=== PATIENT | male | born 1985 | race American Indian/Alaskan Native ===

== ENCOUNTER 2019-04-17 14:29 | Emergency (ER) | payer SELFPAY ==
[2019-04-17 14:39] VITALS: BP 131/78
--- NOTE | 2019-04-17 14:52 | Emergency Department Report ---
Blank Doc - Documentation Documentation: 33-year-old male that presents with abdominal pain, fever, n/v. This initial assessment/diagnostic orders/clinical plan/treatment(s) is/are subject to change based on patient's health status, clinical progression and re- assessment by fellow clinical providers in the ED. Further treatment and workup at subsequent clinical providers discretion. Patient/guardians urged not to elope from the ED as their condition may be serious if not clinically assessed and managed. Initial orders include: 1- Patient sent to [facility] for further evaluation and treatment 2- labs 3- UA
[2019-04-17 15:11] LABS: Basophils % (Auto) 0.2 % (0.0-1.8); Eosinophils % (Auto) 0.3 % (0.0-4.3); Hematocrit 45.2 % (35.5-45.6); Hemoglobin 15.8 gm/dl (11.8-15.2); Lymphocytes # (Auto) 1.4 K/mm3 (1.2-5.4); Lymphocytes % (Auto) 21.3 % (13.4-35.0); Mean Corpuscular HGB Conc 35 % (32-34); Mean Corpuscular Volume 89 fl (84-94); Monocytes # (Auto) 0.8 K/mm3 (0.0-0.8); Monocytes % (Auto) 11.7 % (0.0-7.3); Platelet Count 156 K/mm3 (140-440); Red Blood Count 5.05 M/mm3 (3.65-5.03); Red Cell Distribution Width 14.1 % (13.2-15.2)
[2019-04-17 15:30] LABS: Alanine Aminotransferase 17 units/L (7-56); BUN/Creatinine Ratio 5; Blood Urea Nitrogen 6 mg/dL (9-20); Hemolysis Index 15
[2019-04-17 17:16] LABS: Bilirubin,Urine NEG (Negative); Blood,Urine NEG (Negative); Color,Urine Yellow (Yellow); Mucus,Urine FEW /HPF; Urobilinogen,Urine < 2.0 mg/dL (<2.0)
[2019-04-17] MEDS ORDERED: SODIUM CHLORIDE 0.9% 1000 ML 1,000 ML IV ONE (18:18)
[2019-04-17] MEDS ORDERED: ONDANSETRON 4 MG/2 ML INJ IV ONE (18:23)
[2019-04-17] MEDS ORDERED: ONDANSETRON 4 MG/2 ML INJ ONE (18:24)
[2019-04-17] MEDS ORDERED: PIPERACIL/TAZOBACTA 4.5/NS 100 4.5 GM/100 ML VIAL IV ONE (19:03)
[2019-04-17] MEDS ORDERED: METOCLOPRAMIDE 10 MG/2 ML INJ IV ONE (19:17)
[2019-04-17] MEDS ORDERED: diphenhydrAMINE 50 MG/ML VIAL IV ONE (19:17)
--- NOTE | 2019-04-17 19:45 | XRay Report ---
CHEST PA AND LATERAL VIEWS INDICATION: MAIN: fever cough; Pt. c/o diarrhea, body aches, fever, chills, cough, and congestion. Pt. is HIV+. COMPARISON: None FINDINGS: Support devices: None Heart: Normal Lungs/Pleura: No acute pulmonary or pleural findings. IMPRESSION: 1. No significant abnormality. Signer Name: Mehran Bashir MD Signed: 04/17/2019 7:41 PM Workstation Name: [id number]
--- NOTE | 2019-04-17 20:13 | Emergency Department Report ---
ED Abdominal Pain HPI - General Chief Complaint: Nausea/Vomiting/Diarrhea Stated Complaint: VOMIT/FLU LIKE SYM Time Seen by Provider: 04/17/19 14:50 Source: patient Mode of arrival: Ambulatory Limitations: No Limitations - History of Present Illness Initial Comments: Mr Valdes is a 33 y/o male who presents with abdominal pain nausea vomiting diarrhea 3 days r. because abated. MAXIMUM TEMPERATURE 101 at home. Patient is tolerating by mouth hydration at this time. Pain described as forward 10 aching cramping . Patient is followed by IV . Does not remember last CD4 count states it is undetectable as far status, MD Complaint: abdominal pain Onset/Timin -: days(s) Location: RUQ Radiation: RUQ Migration to: LUQ, RUQ, LLQ Severity: moderate Severity scale (0 -10): 5 Quality: aching Consistency: constant Improves With: nothing Worsens With: eating Associated Symptoms: nausea, diarrhea, fever, chills. denies: constipation, dysuria, melena - Related Data Previous Rx's Medication Instructions Recorded Last Taken Type Dicyclomine [Bentyl] 10 mg PO QID PRN #40 capsule 04/17/19 Unknown Rx Ondansetron [Zofran Odt] 4 mg PO Q8HR PRN #12 tab.rapdis 04/17/19 Unknown Rx Allergies Allergy/AdvReac Type Severity Reaction Status Date / Time sulfamethoxazole Allergy Itching Verified 04/17/19 14:37 [From Bactrim] trimethoprim [From Bactrim] Allergy Itching Verified 04/17/19 14:37 ED Review of Systems ROS: Stated complaint: VOMIT/FLU LIKE SYM Other details as noted in HPI Constitutional: denies: chills, fever Eyes: denies: eye pain, eye discharge, vision change ENT: congestion. denies: ear pain, throat pain Respiratory: denies: cough, shortness of breath, wheezing Cardiovascular: denies: chest pain, palpitations Endocrine: no symptoms reported Gastrointestinal: denies: abdominal pain, nausea, diarrhea Genitourinary: denies: urgency, dysuria Musculoskeletal: denies: back pain, joint swelling, arthralgia Skin: denies: rash, lesions Neurological: denies: headache, weakness, paresthesias Psychiatric: denies: anxiety, depression Hematological/Lymphatic: denies: easy bleeding, easy bruising ED Past Medical Hx - Past Medical History Previous Medical History?: Yes Hx HIV: Yes - Surgical History Past Surgical History?: Yes Additional Surgical History: Anal surgery - Social History Smoking Status: Never Smoker Substance Use Type: Marijuana - Medications Home Medications: Home Medications Medication Instructions Recorded Confirmed Last Taken Type Dicyclomine [Bentyl] 10 mg PO QID PRN #40 capsule 04/17/19 Unknown Rx Ondansetron [Zofran Odt] 4 mg PO Q8HR PRN #12 tab.rapdis 04/17/19 Unknown Rx ED Physical Exam - General Limitations: No Limitations General appearance: alert, in no apparent distress - Head Head exam: Present: atraumatic, normocephalic - Eye Eye exam: Present: normal appearance, PERRL, EOMI Pupils: Present: normal accommodation - ENT ENT exam: Present: normal orophraynx, mucous membranes moist, TM's normal bilaterally, normal external ear exam - Neck Neck exam: Present: normal inspection, tenderness, full ROM - Respiratory Respiratory exam: Present: normal lung sounds bilaterally. Absent: respiratory distress, wheezes, stridor, chest wall tenderness - Cardiovascular Cardiovascular Exam: Present: regular rate, normal rhythm, normal heart sounds. Absent: systolic murmur, diastolic murmur, rubs, gallop - GI/Abdominal GI/Abdominal exam: Present: soft, tenderness (RUQ ), normal bowel sounds. Absent: distended, guarding, rebound, rigid, bruit, hernia - Rectal Rectal exam: Present: deferred - Extremities Exam Extremities exam: Present: normal inspection, full ROM, normal capillary refill. Absent: tenderness, pedal edema - Back Exam Back exam: Present: normal inspection, full ROM. Absent: tenderness, CVA tenderness (R), CVA tenderness (L), rash noted - Neurological Exam Neurological exam: Present: alert, oriented X3, CN II-XII intact, normal gait, reflexes normal - Psychiatric Psychiatric exam: Present: normal affect, normal mood - Skin Skin exam: Present: warm, dry, intact, normal color. Absent: rash ED Course Vital Signs 04/17/19 14:37 Temperature 100.5 F H Pulse Rate 90 Respiratory 16 Rate Blood Pressure 131/78 O2 Sat by Pulse 96 Oximetry ED Medical Decision Making - Lab Data Result diagrams: 04/17/19 14:56 04/17/19 14:56 - Radiology Data Radiology results: report reviewed, image reviewed Ordering Physician: LOUANN STEPHENS NP Date of Service: 04/17/19 Procedure(s): XR chest routine 2V Accession Number(s): [id number] cc: LOUANN STEPHENS NP Fluoro Time In Minutes: CHEST PA AND LATERAL VIEWS INDICATION: MAIN: fever cough; Pt. c/o diarrhea, body aches, fever, chills, cough, and congestion. Pt. is HIV+. COMPARISON: None FINDINGS: Support devices: None Heart: Normal Lungs/Pleura: No acute pulmonary or pleural findings. IMPRESSION: 1. No significant abnormality. Signer Name: Mehran Bashir MD Signed: 04/17/2019 7:41 PM Workstation Name: [id number] Transcribed By: TM Dictated By: Mehran Bashir MD Electronically Authenticated By: Mehran Bashir MD Signed Date/Time: 04/17/191940 DD/ 39 TD/TT: Ordering Physician: LOUANN STEPHENS NP Date of Service: 04/17/19 Procedure(s): CT abdomen pelvis w con Accession Number(s): [id number] cc: LOUANN STEPHENS NP CT abdomen pelvis w con INDICATION: abd pain fever. TECHNIQUE: All CT scans at this location are performed using CT dose reduction for ALARA by means of automated exposure control. COMPARISON: None available. FINDINGS: Lung bases are clear of acute disease. Liver, gallbladder, spleen, pancreas, kidneys and adrenals are negative. Abdominal aorta is normal in size. No adenopathy. Pelvis Normal appendix. Urinary bladder and distal ureters are negative. No free fluid or inflammatory change. No significant bowel abnormalities. No acute skeletal lesions. IMPRESSION: 1. No acute abnormalities. Signer Name: Mehran Bashir MD Signed: 04/17/2019 8:21 PM Workstation Name: [id number] Transcribed By: TM Dictated By: Mehran Bashir MD Electronically Authenticated By: Mehran Bashir MD Signed Date/Time: 04/17/192020 DD/ 18 TD/TT: - Medical Decision Making Nausea vomiting is resolved. Pain reduced to 1/10. Patient tolerated the removal of this time without nausea vomiting. Offered admission however he declines advising that he feels 100% better. This is likely viral event. Will DC home in stable condition patient will follow up with ID tomorrow. Patient is afebrile ambulatory in ED. Appears well and nontoxic at this time discharge is reasonable. Critical care attestation.: If time is entered above; I have spent that time in minutes in the direct care of this critically ill patient, excluding procedure time. ED Disposition Clinical Impression: Abdominal pain Qualifiers: Abdominal location: right upper quadrant Qualified Code(s): R10.11 - Right upper quadrant pain Nausea & vomiting Qualifiers: Vomiting type: unspecified Vomiting Intractability: non-intractable Qualified Code(s): R11.2 - Nausea with vomiting, unspecified Disposition: DC-01 TO HOME OR SELFCARE Is pt being admited?: No Does the pt Need Aspirin: No Condition: Stable Instructions: Acute Nausea and Vomiting (ED), Abdominal Pain (ED) Additional Instructions: follow p with your infectious disease doctor tomorrow as discussed and agreed Prescriptions: Dicyclomine [Bentyl] 10 mg PO QID PRN #40 capsule PRN Reason: abdominal spasm Ondansetron [Zofran Odt] 4 mg PO Q8HR PRN #12 tab.rapdis PRN Reason: Nausea Referrals: PRIMARY CARE, [Primary Care Provider] - 3-5 Days Time of Disposition: 22:07
--- NOTE | 2019-04-17 20:26 | Cat Scan Report ---
CT abdomen pelvis w con INDICATION: abd pain fever. TECHNIQUE: All CT scans at this location are performed using CT dose reduction for ALARA by means of automated e xposure control. COMPARISON: None available. FINDINGS: Lung bases are clear of acute disease. Liver, gallbladder, spleen, pancreas, kidneys and adrenals are negative. Abdominal aorta is normal in size. No adenopathy. Pelvis Normal appendix. Urinary bladder and distal ureters are negative. No free fluid or inflammatory ng e. No significant bowel abnormalities. No acute skeletal lesions. IMPRESSION: 1. No acute abnormalities. Signer Name: Mehran Bashir MD Signed: 04/17/2019 8:21 PM Workstation Name: [id number]
[2019-04-17] MEDS ORDERED: IBUPROFEN 800 MG TAB ONE (22:29)
[2019-04-17] MEDS ORDERED: ACETAMINOPHEN 500 MG TAB ONE (22:29)
[2019-04-17] MEDS ORDERED: ONDANSETRON 4 MG ODT TAB ONE (22:30)
[2019-04-17] MEDS ORDERED: ACETAMINOPHEN 500 MG TAB PO ONE (22:31)
[2019-04-17] MEDS ORDERED: IBUPROFEN 800 MG TAB PO ONE (22:31)
[2019-04-17] MEDS ORDERED: ONDANSETRON 4 MG ODT TAB PO ONE (22:31)
== END 2019-04-17 23:16 | disposition home or self-care (01) ==
LOC: ED 14:29
DX: R10.9 Unspecified abdominal pain (principal); R11.2 Nausea with vomiting, unspecified; R19.7 Diarrhea, unspecified; F12.10 Cannabis abuse, uncomplicated; Z98.890 Other specified postprocedural states; Z88.2 Allergy status to sulfonamides
CPT/HCPCS: 36415; 71046; 74177; 80053; 81001; 82140; 83690; 85025; 87040; 96361; 96365; 96375; 99284; J1200; J2405; J2543; J2765; J7030; Q9967; Q0162

== ENCOUNTER 2019-07-14 19:19 | Emergency (ER) | payer SELFPAY ==
--- NOTE | 2019-07-14 19:44 | Emergency Department Report ---
Blank Doc - Documentation Documentation: 34-year-old male that presents with chest pain, sob, and cough. This initial assessment/diagnostic orders/clinical plan/treatment(s) is/are subject to change based on patient's health status, clinical progression and re- assessment by fellow clinical providers in the ED. Further treatment and workup at subsequent clinical providers discretion. Patient/guardians urged not to elope from the ED as their condition may be serious if not clinically assessed and managed. Initial orders include: 1- Patient sent to [facility] for further evaluation and treatment 2- cxr 3- EKG
--- NOTE | 2019-07-14 20:43 | XRay Report ---
CHEST 2 VIEWS INDICATION / CLINICAL INFORMATION: Shortness of breath, chest pain. COMPARISON: Chest radiograph 04/17/2019 FINDINGS: SUPPORT DEVICES: None. HEART / MEDIASTINUM: No significant abnormality. LUNGS / PLEURA: No significant pulmonary or pleural abnormality. No pneumothorax. ADDITIONAL FINDINGS: No significant additional findings. IMPRESSION: No acute finding. No significant change. Signer Name: Salo Otto MD Signed: 07/14/2019 8:38 PM Workstation Name: [id number]
[2019-07-14 23:04] LABS: Basophils % (Auto) 0.9 % (0.0-1.8); Eosinophils # (Auto) 0.1 K/mm3 (0.0-0.4); Eosinophils % (Auto) 2.4 % (0.0-4.3); Hematocrit 48.5 % (35.5-45.6); Hemoglobin 16.4 gm/dl (11.8-15.2); Lymphocytes # (Auto) 1.9 K/mm3 (1.2-5.4); Mean Corpuscular HGB Conc 34 % (32-34); Mean Corpuscular Volume 91 fl (84-94); Monocytes # (Auto) 0.6 K/mm3 (0.0-0.8); Monocytes % (Auto) 10.1 % (0.0-7.3); Platelet Count 182 K/mm3 (140-440); Red Blood Count 5.34 M/mm3 (3.65-5.03); Red Cell Distribution Width 14.7 % (13.2-15.2)
[2019-07-14 23:19] LABS: BUN/Creatinine Ratio 16; Blood Urea Nitrogen 16 mg/dL (9-20)
[2019-07-14 23:20] LABS: Alanine Aminotransferase 20 units/L (7-56); Albumin 4.3 g/dL (3.9-5); Calcium 9.2 mg/dL (8.4-10.2); Hemolysis Index 9
--- NOTE | 2019-07-14 23:37 | Emergency Department Report ---
ED General Adult HPI - General Chief complaint: Upper Respiratory Infection Stated complaint: SOB/CP Time Seen by Provider: 07/14/19 19:44 Source: patient Mode of arrival: Ambulatory Limitations: No Limitations - History of Present Illness Initial comments: 34-year-old -[place] male patient with history of HIV (states compliant with antiviral meds) presents with complaints of cough, shortness of breath, tactile fevers, and body aches x6 days and hematuria and dysuria x3 days. He admits to shortness of breath and chest pain. He denies any recent long travel/extended periods of sitting, leg pain/swelling, history of DVT/PE, hemoptysis, penile discharge, abdominal pain, or diarrhea. He rates his chest pain as a 6/10 in severity and states it occurs mainly with inhalation. - Related Data Previous Rx's Medication Instructions Recorded Last Taken Type Dicyclomine [Bentyl] 10 mg PO QID PRN #40 capsule 04/17/19 Unknown Rx Ondansetron [Zofran Odt] 4 mg PO Q8HR PRN #12 tab.rapdis 04/17/19 Unknown Rx Benzonatate 200 mg PO TID PRN #30 capsule 07/15/19 Unknown Rx Doxycycline Monohydrate 100 mg PO BID 10 Days #20 capsule 07/15/19 Unknown Rx Allergies Allergy/AdvReac Type Severity Reaction Status Date / Time sulfamethoxazole Allergy Itching Verified 04/17/19 14:37 [From Bactrim] trimethoprim [From Bactrim] Allergy Itching Verified 04/17/19 14:37 ED Review of Systems ROS: Stated complaint: SOB/CP Other details as noted in HPI Constitutional: chills, fever, malaise, weakness. denies: diaphoresis Eyes: denies: vision change ENT: throat pain Respiratory: cough, shortness of breath. denies: SOB with exertion Cardiovascular: chest pain Gastrointestinal: nausea, vomiting. denies: diarrhea Genitourinary: dysuria, hematuria. denies: testicular pain, testicular mass Musculoskeletal: denies: back pain Skin: denies: rash, lesions Neurological: denies: headache ED Past Medical Hx - Past Medical History Previous Medical History?: Yes Hx HIV: Yes - Surgical History Additional Surgical History: Anal surgery - Social History Smoking Status: Never Smoker Substance Use Type: Marijuana - Medications Home Medications: Home Medications Medication Instructions Recorded Confirmed Last Taken Type Dicyclomine [Bentyl] 10 mg PO QID PRN #40 capsule 04/17/19 Unknown Rx Ondansetron [Zofran Odt] 4 mg PO Q8HR PRN #12 tab.rapdis 04/17/19 Unknown Rx Benzonatate 200 mg PO TID PRN #30 capsule 07/15/19 Unknown Rx Doxycycline Monohydrate 100 mg PO BID 10 Days #20 capsule 07/15/19 Unknown Rx ED Physical Exam - General Limitations: No Limitations General appearance: alert, in no apparent distress - Head Head exam: Present: atraumatic, normocephalic - Eye Eye exam: Present: normal appearance - ENT ENT exam: Present: mucous membranes moist - Neck Neck exam: Present: normal inspection, full ROM. Absent: tenderness, lymphadenopathy - Respiratory Respiratory exam: Present: normal lung sounds bilaterally, rhonchi. Absent: respiratory distress, wheezes, rales - Cardiovascular Cardiovascular Exam: Present: regular rate, normal rhythm. Absent: systolic murmur, diastolic murmur, rubs, gallop - GI/Abdominal GI/Abdominal exam: Present: soft, normal bowel sounds. Absent: distended, tenderness, guarding, rebound, rigid - Extremities Exam Extremities exam: Present: normal inspection - Back Exam Back exam: Present: normal inspection. Absent: CVA tenderness (R), CVA tenderness (L) - Neurological Exam Neurological exam: Present: alert, oriented X3, normal gait - Psychiatric Psychiatric exam: Present: normal affect, normal mood - Skin Skin exam: Present: warm, dry, intact, normal color. Absent: rash ED Course Vital Signs 07/14/19 07/14/19 07/15/19 19:36 19:44 00:09 Temperature 98.6 F 98.6 F 99.4 F Pulse Rate 74 75 80 Respiratory 18 18 20 Rate Blood Pressure 127/77 127/77 Blood Pressure 132/73 [Right] O2 Sat by Pulse 95 95 97 Oximetry ED Medical Decision Making - Lab Data Result diagrams: 07/14/19 22:36 07/14/19 22:36 Lab Results 07/14/19 07/14/19 07/15/19 Range/Units 22:36 22:36 Unknown WBC 5.7 (4.5-11.0) K/mm3 RBC 5.34 H (3.65-5.03) M/mm3 Hgb 16.4 H (11.8-15.2) gm/dl Hct 48.5 H (35.5-45.6) % MCV 91 (84-94) fl MCH 31 (28-32) pg MCHC 34 (32-34) % RDW 14.7 (13.2-15.2) % Plt Count 182 (140-440) K/mm3 Lymph % (Auto) 34.0 (13.4-35.0) % [place] % (Auto) 10.1 H (0.0-7.3) % Eos % (Auto) 2.4 (0.0-4.3) % Baso % (Auto) 0.9 (0.0-1.8) % Lymph # 1.9 (1.2-5.4) K/mm3 [place] # 0.6 (0.0-0.8) K/mm3 Eos # 0.1 (0.0-0.4) K/mm3 Baso # 0.0 (0.0-0.1) K/mm3 Seg Neutrophils % 52.6 (40.0-70.0) % Seg Neutrophils # 3.0 (1.8-7.7) K/mm3 ESR 70 (0-20) mm/Hr Sodium 136 L (137-145) mmol/L Potassium 3.7 (3.6-5.0) mmol/L Chloride 94.3 L (98-107) mmol/L Carbon Dioxide 29 (22-30) mmol/L Anion Gap 16 mmol/L BUN 16 (9-20) mg/dL Creatinine 1.0 (0.8-1.5) mg/dL Estimated GFR > 60 ml/min BUN/Creatinine Ratio 16 % Glucose 121 H (75-100) mg/dL Calcium 9.2 (8.4-10.2) mg/dL Total Bilirubin 0.30 (0.1-1.2) mg/dL Direct Bilirubin < 0.2 (0-0.2) mg/dL Indirect Bilirubin 0.1 mg/dL AST 29 (5-40) units/L ALT 20 (7-56) units/L Alkaline Phosphatase 68 (35-129) units/L Troponin T < 0.010 (0.00-0.029) ng/mL Total Protein 8.6 H (6.3-8.2) g/dL Albumin 4.3 (3.9-5) g/dL Albumin/Globulin Ratio 1.0 % Urine Color Yellow (Yellow) Urine Turbidity Clear (Clear) Urine pH 6.0 (5.0-7.0) Ur Specific [place] 1.025 (1.003-1.030) Urine Protein 100 mg/dl (Negative) mg/dL Urine Glucose (UA) Neg (Negative) mg/dL Urine Ketones Neg (Negative) mg/dL Urine Blood Sm (Negative) Urine Nitrite Neg (Negative) Urine Bilirubin Neg (Negative) Urine Urobilinogen < 2.0 (<2.0) mg/dL Ur Leukocyte Esterase Neg (Negative) Urine WBC (Auto) 2.0 (0.0-6.0) /HPF Urine RBC (Auto) 3.0 (0.0-6.0) /HPF U Epithel Cells (Auto) 1.0 (0-13.0) /HPF Urine Bacteria (Auto) 1+ (Negative) /HPF Urine Mucus Few /HPF - Radiology Data Radiology results: report reviewed CHEST 2 VIEWS INDICATION / CLINICAL INFORMATION: Shortness of breath, chest pain. COMPARISON: Chest radiograph 04/17/2019 FINDINGS: SUPPORT DEVICES: None. HEART / MEDIASTINUM: No significant abnormality. LUNGS / PLEURA: No significant pulmonary or pleural abnormality. No pneumothorax. ADDITIONAL FINDINGS: No significant additional findings. IMPRESSION: No acute finding. No significant change. - Medical Decision Making Patient here with complaints of cough, shortness of breath, and flulike symptoms for the past 6 days and hematuria and dysuria for the past 3 days. Rhonchi noted diffusely on exam without wheezing or rales. CBC, CMP, and UA are normal. Chest x-ray is normal. EKG reads possible pericarditis-ESR = 70. No signs of strep pharyngitis on exam. Patient is well-appearing. His vitals are normal. He is stable for discharge home. Given HIV, will treat for bacterial bronchitis with doxycycline which will also cover chlamydia. Rocephin IM given. Recommend follow-up with primary care provider within 2 to 3 days. Strict return precautions were discussed in great detail with patient who verbalizes understanding. Critical care attestation.: If time is entered above; I have spent that time in minutes in the direct care of this critically ill patient, excluding procedure time. ED Disposition Clinical Impression: Acute bacterial bronchitis, Dysuria Disposition: DC-01 TO HOME OR SELFCARE Is pt being admited?: No Does the pt Need Aspirin: No Condition: Stable Instructions: Acute Bronchitis (ED), Sexually Transmitted Diseases (ED), Acute Hematuria (ED) Prescriptions: Benzonatate 200 mg PO TID PRN #30 capsule PRN Reason: Cough Doxycycline Monohydrate 100 mg PO BID 10 Days #20 capsule Referrals: PRIMARY CARE, [Primary Care Provider] - 07/17/19 Forms: Work/School Release Form(ED) ED Shortness of Breath MDM - MDM DVT Risk Factors: denies: Cast, Recent Orthopedic Procedure, Cancer, Recent Surgery-Other, Bedridden, Paralysis, Prior DVT/PE, Leg Swelling - Wells Criteria Clinical Symptoms of DVT: (0) No No Alternative Diagnosis: (0) No Immobilization of Surgery in Previous 4 Weeks: (0) No Previous DVT/PE: (0) No Hemoptysis: (0) No Malignancy: (0) No
[2019-07-14 23:40] LABS: Erythrocyte Sedimentation Rate 70 mm/Hr (0-20)
[2019-07-15 00:07] LABS: Bilirubin,Direct < 0.2 mg/dL (0-0.2)
[2019-07-15 00:10] VITALS: BP 132/73
[2019-07-15 00:25] LABS: Bacteria,Urine 1+ /HPF (Negative); Bilirubin,Urine NEG (Negative); Blood,Urine SM (Negative); Color,Urine Yellow (Yellow); Mucus,Urine FEW /HPF; Urobilinogen,Urine < 2.0 mg/dL (<2.0)
[2019-07-15] MEDS ORDERED: LIDOCAINE-MPF (1%) 10 MG/1 ML VIAL 5 ML INFILTRATI ONE (00:42)
== END 2019-07-15 02:11 | disposition home or self-care (01) ==
LOC: ED 19:19
DX: J40 Bronchitis, not specified as acute or chronic (principal); J20.8 Acute bronchitis due to other specified organisms; R30.0 Dysuria; F12.10 Cannabis abuse, uncomplicated; Z98.890 Other specified postprocedural states; Z79.899 Other long term (current) drug therapy; Z88.2 Allergy status to sulfonamides
CPT/HCPCS: 36415; 71046; 80048; 80076; 81001; 84484; 85025; 85652; 87591; 93005; 93010; 96372; 99284; J0696